=== PATIENT | female | born 1935 | race Caucasian/White ===

== ENCOUNTER 2018-02-02 14:58 | Inpatient (IN) | payer MEDICARE, OTHER ==
[~2018-02-02] VITALS: Ht 162.6 cm; Wt 114.3 kg
[2018-02-02] MEDS: SIMVASTATIN 40 MG TABLET PO SCH (01:00)
--- NOTE | 2018-02-02 15:10 | NUR ---
RIGHT SIDED BODY/LEG PAIN,S/P GLF IN A PARKING LOT, NO LOC. PT AAOX3, VSS. PT ALSO C/O NECK & BACK PAIN. DR. WALKER @BS FOR EVAL. DAUGHTER @ BS ASSISTING WITH TRANSLATION. WILL CONT TO MONITOR.
[2018-02-02] MEDS ORDERED: ONDANSETRON HCL/PF 4 MG/2 ML VIAL IVP ONE (15:30)
[2018-02-02] MEDS ORDERED: MORPHINE SULFATE INJ 4 MG/ML DISP.SYRIN ONE (15:30)
[2018-02-02] MEDS ORDERED: MORPHINE SULFATE INJ 2 MG/ML DISP.SYRIN IV ONE (15:30)
[2018-02-02] MEDS ORDERED: ONDANSETRON HCL/PF 4 MG/2 ML VIAL ONE (15:30)
--- NOTE | 2018-02-02 15:35 | NUR ---
PT REFUSED IV MEDS & SALINE LOCK INSERTION, AWARE.
[2018-02-02] MEDS ORDERED: KETOROLAC TROMETHAMINE INJ 60 MG/2 ML VIAL IM ONE ×2 (15:45→16:00)
--- NOTE | 2018-02-02 15:53 | NUR ---
PT DOESNN'T WANT PAIN MED @ THIS MOMENT.
--- NOTE | 2018-02-02 17:27 | NUR ---
MEDICATED WITH 60 MG OF TORADOL IM, RUOQ BUTTOCK AREA, PT JETT WELL. PT TO RADIOLOGY DEPT VIA PHUONG.
--- NOTE | 2018-02-02 18:38 | NUR ---
PT RESTING, EYES CLOSED EASILY AWAKEN WITH VERBAL STIMULI. PT STS PAIN 10/26 & BETTER. DENIES CP, SOB, DIZZINESS, N/V @ THIS TIME. PT STABLE NAD NOTED THIS TIME. DAUGHTER @ BS.
--- NOTE | 2018-02-02 19:53 | NUR ---
PT & DAUGHTER REFUSED, BLOOD DRAW & SALINE LOCK INSERTION, AWARE.
--- NOTE | 2018-02-02 20:04 | NUR ---
M/S 202
--- NOTE | 2018-02-02 20:45 | NUR ---
FAMILY DOESN'T WANT PT TO BE ADMITTED TO THE HOSPITAL. PT TO MRI VIA [facility].
[2018-02-02] MEDS ORDERED: HEPARIN SODIUM, PORCINE 5000 UNITS/1 ML VIAL SQ SCH (21:00)
[2018-02-02] MEDS ORDERED: BLOOD SUGAR DIAGNOSTIC 1 EACH STRIP IN SCH (22:00)
--- NOTE | 2018-02-02 22:38 | NUR ---
FAMILY CHANGED THEIR MIND & WANTS PT TO ADMITTED.
--- NOTE | 2018-02-02 23:06 | NUR ---
PT UPGRADED BED FROM MS TO TELE. AWAITING BED ASSIGNMENT.
--- NOTE | 2018-02-02 23:11 | NUR ---
PT ASLEEP, EASILY AWAKEN WITH VERBAL STIMULI. DENIES CP, SOB, DIZZINESS, N/V @ THIS TIME. PT C/O RT ARM, HAND & KNEE PAIN 08/26 & JETT WELL. WILL CONT TO MONITOR.
--- NOTE | 2018-02-02 23:30 | NUR ---
EPIC AMBULATORY ANALYST ADMISSION NOTES PATIENT BROUGHT INTO THE UNIT VIA GURNEY, NO IV ACCESS AND PER REPORT FROM ER, PATIENT AND FAMILY HAS BEEN REFUSING IV ACCESS, BLOOD DRAW A ND MRI OF THE BRAIN. EXPLAINED RISKS AND BENEFITS TO PT BUT CONTINUES TO REFUSE. PT IN NO ACUTE DISTRESS, NO SOB, BREATHING EVEN AND UNLABORED, DENIES CHEST PAIN AND IS VERBALIZING ONLY 4/10 GENERALIZED PAIN BUT MORE ON HER RIGHT LEG. ORIENTED PT TO UNIT, ADMISSION PROCESS AND PLAN OF CARE. NURSING SWALLOW EVALUATION DONE, NIHSS PERFORMED WITH SCORE OF 6. GENERAL SCIENCE TEACHER FREDDY INFORMED AND PER GENERAL SCIENCE TEACHER TO KEEP PATIENT NPO. ALL PATIENT'S NEEDS ATTENDED TO, PLACED CALL LIGHT WITHIN EASY REACH, PLACED BED IN LOW POSITION AND LOCKED IN PLACE. ON TELE MONITORING WITH SR 70s.
[2018-02-03] VITALS: BP 144/73
[2018-02-03] MEDS ORDERED: BLOOD SUGAR DIAGNOSTIC 1 EACH STRIP IN SCH
[2018-02-03] MEDS ORDERED: HEPARIN SODIUM, PORCINE 5000 UNITS/1 ML VIAL ONE (01:10)
--- NOTE | 2018-02-03 01:15 | NUR ---
RN NOTES INFORMED SABRINA BELLO THAT PT HAS NOT RECEIVED HEPARIN 5,000 UNITS SQ YET. PER PLUGGER MAN, GIVE FIRST DOSE OF HEPARIN.
[2018-02-03] MEDS ORDERED: DOCU250C89 PO (02:07)
[2018-02-03] MEDS ORDERED: LINA145C PO (02:07)
[2018-02-03] MEDS ORDERED: LORA10TA7 PO (02:07)
[2018-02-03] MEDS ORDERED: METO50TA16 PO (02:07)
[2018-02-03] MEDS ORDERED: DILT-32 PO (02:07)
[2018-02-03] MEDS ORDERED: OLME1TAB34 PO (02:07)
[2018-02-03] MEDS ORDERED: HEPARIN SODIUM, PORCINE 5000 UNITS/1 ML VIAL SQ ONE (02:15)
--- NOTE | 2018-02-03 02:15 | NUR ---
RN NOTES CALRIFIED HEPARIN AND ACCUCHECK/SLIDING SCALE ORDERS WITH SNAKER DRIVING HORSES, PER SABRINA BELLO, HEPARIN WILL BE GIVEN Q12 HOURS TO BE STARTED TOMORROW AND ACCUCHECK WILL BE DONE ACHS. ALL ORDERS NOTED AND CARRIED OUT. CLARIFIED WITH PHARMACY.
[2018-02-03] MEDS ORDERED: INSULIN REGULAR, HUMAN 100 UNIT/ML 3 ML VIAL SQ PRN (02:30)
[2018-02-03] MEDS ORDERED: DEXTROSE 50%-WATER 50 ML DISP.SYRIN IV PRN (02:30)
[2018-02-03 04:00] VITALS: BP 134/58
--- NOTE | 2018-02-03 06:29 | NUR ---
RN CLOSING NOTES RESIDENT ASLEEP IN BED, EASIILY AROUSABLE. ALL PATIENT'S NEEDS ATTENDED TO THROUGHOUT THE SHIFT. PATIENT'S DAUGHTER AT BEDSIDE. PT WITH NO SOB, IN NO DISTRESS. SPOKE WITH DAUGHTER, MEMO, REGARDING PT'S IV PERIPHERAL ACCESS BUT DAUGHTER CONTINUES TO REFUSE IV INSERTION. ASSEMBLER MECHANICAL ORDNANCE TRIED TO OBTAIN BLOOD SPECIMEN FOR AM LABS BUT DAUGHTER ASKED ASSEMBLER MECHANICAL ORDNANCE TO COME BACK AT 8AM. ALL PATIENT'S NEEDS ATTENDED TO. PATIENT WITH NO C/O PAIN AT THIS TIME. KEPT PT SAFE AND DRY, CLEAN AND COMFORTABLE. ON TELE MONITORING SR 60-70S. WILL ENDORSE TO AM SHIFT NURSE FOR CONTINUITY OF CARE.
[2018-02-03] MEDS: BLOOD SUGAR DIAGNOSTIC 1 EACH STRIP IN SCH ×4 (07:01→21:54)
[2018-02-03 08:00] VITALS: BP 132/54
[2018-02-03] MEDS ORDERED: Medication Not On Formulary EA (Olmesartan Med/Amlodipine/Hctz (Tribenzor 40-10-25 Mg Ta PO SCH (09:00)
[2018-02-03] MEDS ORDERED: DOCUSATE SODIUM 100 MG CAPSULE PO SCH (09:00)
[2018-02-03] MEDS: DOCUSATE SODIUM 250 MG CAPSULE PO SCH ×3 (09:00→18:32)
[2018-02-03] MEDS ORDERED: Linaclotide (Linzess) 145 MCG PO SCH (09:00)
[2018-02-03] MEDS ORDERED: PANTOPRAZOLE 40 MG VIAL IV SCH (09:00)
--- NOTE | 2018-02-03 10:22 | NUR ---
WOUND CARE CONSULT: PT PRESENTS WITH BREASTFOLD REDNESS, PRESENT ON ADMISSION. CURRENT SPRING SCORE IS 11. PT WAS UP OUT OF BED WITH P.T. RECOMMENDATIONS MADE FOR SKIN PROTECTION AND DISCUSSED WITH NURSING STAFF. PEGGY ISOFLEX LOW AIRLOSS BED TO BE PLACED. WILL SEE PRN. BANKS IN AGREEMENT WITH PLAN OF CARE. Addendum: 02/03/18 at 1023 by WOO QUINTEROS WNDNU Amended: Links added.
[2018-02-03] MEDS ORDERED: Z GUARD REMEDY 2 OZ OINT TP PRN (10:30)
[2018-02-03] MEDS: PANTOPRAZOLE 40 MG TABLET.DR PO SCH ×2 (11:30→12:29)
[2018-02-03 12:00] VITALS: BP 126/55
[2018-02-03] MEDS: METOPROLOL TARTRATE 50 MG TABLET PO SCH ×2 (12:10→18:32)
[2018-02-03] MEDS: Z GUARD REMEDY 2 OZ OINT TP SCH (12:28)
[2018-02-03] MEDS: ASPIRIN EC 325 MG TABLET.DR PO SCH ×2 (12:29→12:45)
--- NOTE | 2018-02-03 12:30 | NUR ---
INSULIN HELD WITH LUNCH INTAKE ONLY 50%.
[2018-02-03 12:49] LABS: BASOPHILS % (AUTO) 0.8 % (0.0-2.0); EOSINOPHILS % (AUTO) 0.7 % (0.0-6.0); HEMATOCRIT 35 % (33-45); HEMOGLOBIN 11.3 g/dL (11.5-14.8); LYMPHOCYTES # (AUTO) 0.9 /CMM (0.8-4.8); LYMPHOCYTES % (AUTO) 18.6 % (20.0-44.0); MEAN CORPUSCULAR HGB CONC 33 g/dl (31.0-36.0); MEAN CORPUSCULAR VOLUME 85 fL (82-100); MONOCYTES # (AUTO) 0.5 /CMM (0.1-1.30); MONOCYTES % (AUTO) 9.4 % (2.0-12.0); NEUTROPHILS # (AUTO) 3.7 /CMM (1.8-8.9); NEUTROPHILS % (AUTO) 70.5 % (43.0-81.0); PLATELET COUNT (AUTO) 163 /CMM (150-450); RDW COEFFICIENT OF VARIATION 13.6 (11.5-15.0); RED BLOOD CELL COUNT(AUTO) 4.03 MIL/uL (4.0-5.2); WHITE BLOOD COUNT (AUTO) 5.1 K/uL (4.3-11.0)
[2018-02-03 12:54] LABS: ALANINE AMINOTRANSFERASE 22 U/L (12-78); ALBUMIN 3.2 g/dL (3.4-5.0); ALKALINE PHOSPHATASE 77 U/L (46-116); ASPARTATE AMINOTRANSFERASE 20 U/L (15-37); BILIRUBIN,TOTAL 0.6 mg/dL (0.2-1.0); CALCIUM, SERUM 8.6 mg/dL (8.5-10.1); CARBON DIOXIDE 34 mmol/L (21-32); CHLORIDE 102 mmol/L (98-107); CREATININE 0.8 mg/dL (0.6-1.3); GLUCOSE 172 mg/dL (74-106); POTASSIUM 4.6 mmol/L (3.5-5.1); SODIUM SERUM 142 mmol/L (136-145); TOTAL PROTEIN, SERUM 6.7 g/dL (6.4-8.2); UREA NITROGEN, BLOOD 25 mg/dL (7-18)
[2018-02-03 12:56] LABS: CHOLESTEROL 182 mg/dL (<200); HDL CHOLESTEROL 58 mg/dL (40-60); LDL 115 mg/dL (0-99); TRIGLYCERIDES 121 mg/dL (30-150)
--- NOTE | 2018-02-03 14:00 | NUR ---
PT.REFUSING TO BE REPOSITIONED NEEDED, OFTEN NEEDED. DTR. DIRECTING CARE.
[2018-02-03] MEDS: TRAMADOL HCL 50 MG TABLET PO PRN ×2 (14:18→22:44)
--- NOTE | 2018-02-03 15:00 | NUR ---
PT. SAT ON EDGE OF BED BY PTX WITH 4 PERSON ASSIST.
--- NOTE | 2018-02-03 15:25 | NUR ---
AT THIS TIME DTR. REFUSING TRANSFER OF PT. TO ISOFLEX BED.
--- NOTE | 2018-02-03 15:27 | NUR ---
CONT. TO REFUSE HEP LOCK AND REPOSITIONING.
[2018-02-03 15:39] LABS: ALBUMIN 3.2 g/dL (3.4-5.0); BILIRUBIN,DIRECT 0.1 mg/dL (0.0-0.2); BILIRUBIN,TOTAL 0.6 mg/dL (0.2-1.0); PHOSPHORUS 4.6 mg/dL (2.5-4.9); TOTAL PROTEIN, SERUM 6.8 g/dL (6.4-8.2)
[2018-02-03 15:59] LABS: INR 0.96 (0.87-1.13)
[2018-02-03 16:00] VITALS: BP 141/61
[2018-02-03 16:34] LABS: THYROID STIMULATING HORMONE 1.142 uIU/mL (0.358-3.74)
--- NOTE | 2018-02-03 18:30 | NUR ---
INSULIN REFUSED WITH DINNER.BGL ONLY 137.
--- NOTE | 2018-02-03 19:20 | NUR ---
RN OPENING NOTES RECEIVED PATIENT ASLEEP IN BED, EASILY AROUSABLE AND WITH DAUGHTER AT BEDSIDE. DAUGHTER AND PATIENT REQUESTING NOT TO MOVE PATIENT SO MUCH. EXPLAINED RISKS AND BENEFITS OF TURNING AND REPOSITIONING, PT AND DAUGHTER VERBALIZED UNDERSTANDING BUT PREFERS NOT TO BE MOVED SO MUCH. PT DENIES PAIN AT THIS TIME, NO SOB AND IN NO DISTRESS. ALL PATIENT'S NEEDS ATTENDED TO AT THIS TIME, CALL LIGHT PLACED WITHIN EASY REACH. WILL CONTINUE TO BE ON TELE MONITORING SR @90s.
[2018-02-03 20:00] VITALS: BP 131/61
--- NOTE | 2018-02-03 21:54 | NUR ---
RN NOTES ACCU-CHECK DONE AND PT WITH BLOOD SUGAR = 141 MG/DL. PT REFUSED TO RECEIVE INSULIN PER SLIDING SCALE. EXPLAINED RISKS AND BENEFITS TO PT. WILL CONTINUE TO MONITOR.
[2018-02-03] MEDS: DILTIAZEM HCL CD 120 MG PO SCH (22:44)
[2018-02-03] MEDS: SIMVASTATIN 40 MG TABLET PO SCH ×2 (22:44→22:54)
[2018-02-03 22:50] LABS: APPEARANCE,URINE SL CLOUDY (CLEAR); BILIRUBIN,URINE NEGATIVE (NEGATIVE); BLOOD, URINE NEGATIVE Ery/uL (NEGATIVE); COLOR,URINE YELLOW (YELLOW); KETONES,URINE NEGATIVE (NEGATIVE); LEUKOCYTE ESTERASE ,URINE NEGATIVE (NEGATIVE); NITRITE, URINE NEGATIVE (NEGATIVE); PH,URINE 5.5 (5.0-8.0); PROTEIN,URINE NEGATIVE (NEGATIVE); UGLUCOSE NEGATIVE (NEGATIVE); UROBILINOGEN,URINE 0.2 EU/dL (0.2)
--- NOTE | 2018-02-03 22:54 | NUR ---
RN NOTE PATIENT REFUSED SIMVASTATIN, PER PT "IT IS A NEW MEDICATION." EXPLAINED RISKS AND BENEFITS OF MEDICATION BUT CONTINUES TO REFUSE, RESPECTED PT'S DECISION. WILL CONTINUE TO MONITOR PT.
[2018-02-04] VITALS (21 sets, daily range): BP systolic 91–138; BP diastolic 44–65
--- NOTE | 2018-02-04 04:35 | NUR ---
RN NOTES NOTED PATIENT WITH C/O GENERAL WEAKNESS, O2 SAT @ 85-86% @ 2LPM, ELEVATED HOB OF PATIENT, O2 SAT @ 91-92% @ 4LPM, APPLIED NON REBREATHER MASK @ 15LPM AND O2 SAT: 95-98%. PAGED DR. BEARD WITH NEW ORDERS. GIVE FIRST DOSE OF XOPENEX 0.63 MG Q6 PRN HHRT, CBC,BMP,TROPONIN, BNP, ABG, MAG, PHOS @ 6AM AND CXR @ 7AM. CLARIFIED WITH MD ALL ORDERS WILL BE SCHEDULED AND NOT ORDERED STAT. MD WITH INSTRUCTION TO DO EVERYTHING SCHEDULED. ALL ORDERS NOTED AND CARRIED OUT. PT AND DAUGHTER AWARE AND AGREES WITH PLAN OF CARE.
--- NOTE | 2018-02-04 04:36 | NUR ---
RN NOTES CLARIFIED WITH MD IF PT WILL BE KEPT ON A NON REBREATHER MASK @ 15LPM. PER DR. BEARD, KEEP PT ON 15LPM VIA NON REBREATHER MASK AND CONTINUE TO MONITOR.
[2018-02-04] MEDS ORDERED: LEVALBUTEROL HCL NEB 1.25 MG/0.5 ML VIAL.NEB NEB PRN ×2 (05:00→06:06)
--- NOTE | 2018-02-04 05:09 | NUR ---
JACKIE NOTES PATIENT RECEIVED BREATHING TX, NOW RECEIVING O2 @5LPM VIA NC, O2 SAT = 97%. Addendum: 02/04/18 at 0518 by HUMZA DRAPER RN PATIENT RECEIVING O2 @ 5LPM VIA FACE MASK.
[2018-02-04 06:11] LABS: ABG BASE EXCESS 3.7 mmol/L; ABG PH 7.304 (7.350-7.450); ABG PO2 79.7 mmHg (75.0-100.0); AaDO2 130.8 mmHg; MetHb 0.4 % (0.0-1.5); O2Hb 93.6 % (94.0-97.0); SITE, ABG Right Radial; VENT MODE, BG 5 LSM
--- NOTE | 2018-02-04 06:14 | NUR ---
RN NOTES RECEIVED ABG VALUES WITH CRITICAL RESULTS C02=65, RELAYED TO DR. BEARD WITH NEW ORDER TO TRANSFER PATIENT TO ICU AND START HER ON BIPAP. INFORMED PATIENT AND DAUGHTER, INITIALLY REFUSING TO BE TRANSFERRED TO ICU. EXPLAINED RISKS AND BENEFITS TO DAUGHTER AND PATIENT AND AGREED TO TRANSFER TO ICU. REPORT GIVEN TO KIT ICU NURSE. PATIENT WILL GO TO BED RM 258.
--- NOTE | 2018-02-04 06:25 | NUR ---
RN NOTES WHILE EXPLAINING TO DAUGHTER THAT PATIENT NEEDS TO BE ON BIPAP, DAUGHTER TELLS CHARGE NURSE THAT PATIENT IS SUPPOSED TO BE USING C-PAP AT HOME BUT PATIENT HAS NOT BEEN USING IT. PATIENT AND DAUGHTER HAS BEEN ASKED MULTIPLE TIMES REGARDING PATIENT'S MEDICAL HISTORY AND PATIENT AND DAUGHTER CONSISTENTLY GIVES HYPERTENSION THE ONLY MEDICAL HISTORY THAT THE PATIENT HAS. WILL ENDORSE TO ICU NURSE UPON TRANSFER.
--- NOTE | 2018-02-04 06:40 | NUR ---
RN NOTES PATIENT TRANSFERRED TO ICU, RM 258.
--- NOTE | 2018-02-04 06:53 | NUR ---
RUBBER MOULDING MACHINE OPERATOR NOTE PT RECEIVED IN BED AND TRANSFERRED SAFELY TO ROOM 258. RECEIVED REPORT FROM HUMZA MEJIA. PT NOTED LETHARGIC AND ANGUILLAN SPEAKING WITH DAUGHTER AT BEDSIDE REFUSING IV ACCESS WITH RISKS AND BENEFITS EXPLAINED AND DAUGHTER STILL REFUSING. ON 5LPM VIA FACE MASK AND SATURATING 97%-100%. PT TOOK OFF TELEMONITOR. HOB ELEVATED. WILL CONTINUE TO MONITOR.
--- NOTE | 2018-02-04 06:53 | NUR ---
RN NOTES NOTIFIED DR BEARD THAT PATIENT AND HER DAUGHTER HAVE BEEN REFUSING IV ACCESS SINCE ADMISSION. PATIENT STILL CURRENTLY HAS NO IV ACCESS
[2018-02-04 07:14] LABS: TROPONIN I < 0.017 ng/mL (0.00-0.056)
[2018-02-04 07:17] LABS: B-TYPE NATRIURETIC PEPTIDE 330 PG/ML (0-125); CALCIUM, SERUM 8.5 mg/dL (8.5-10.1); CARBON DIOXIDE 34 mmol/L (21-32); CHLORIDE 102 mmol/L (98-107); CREATININE 0.8 mg/dL (0.6-1.3); GLUCOSE 125 mg/dL (74-106); PHOSPHORUS 3.7 mg/dL (2.5-4.9); POTASSIUM 4.2 mmol/L (3.5-5.1); SODIUM SERUM 140 mmol/L (136-145); UREA NITROGEN, BLOOD 25 mg/dL (7-18)
[2018-02-04 07:18] LABS: BASOPHILS % (AUTO) 0.7 % (0.0-2.0); EOSINOPHILS % (AUTO) 0.8 % (0.0-6.0); HEMATOCRIT 34 % (33-45); HEMOGLOBIN 11.2 g/dL (11.5-14.8); LYMPHOCYTES # (AUTO) 1.6 /CMM (0.8-4.8); LYMPHOCYTES % (AUTO) 27.1 % (20.0-44.0); MEAN CORPUSCULAR HGB CONC 33 g/dl (31.0-36.0); MEAN CORPUSCULAR VOLUME 86 fL (82-100); MONOCYTES # (AUTO) 0.6 /CMM (0.1-1.30); MONOCYTES % (AUTO) 9.5 % (2.0-12.0); NEUTROPHILS # (AUTO) 3.6 /CMM (1.8-8.9); NEUTROPHILS % (AUTO) 61.9 % (43.0-81.0); PLATELET COUNT (AUTO) 152 /CMM (150-450); RDW COEFFICIENT OF VARIATION 13.6 (11.5-15.0); RED BLOOD CELL COUNT(AUTO) 3.93 MIL/uL (4.0-5.2); WHITE BLOOD COUNT (AUTO) 5.8 K/uL (4.3-11.0)
[2018-02-04] MEDS: PANTOPRAZOLE 40 MG TABLET.DR PO SCH ×2 (07:30→11:53)
--- NOTE | 2018-02-04 08:15 | NUR ---
ICU/RN: Dr Hernandez at bedside, had lengthy dw daughter Linda regarding POC. Agrees to have one PIV inserted. Pt remains on BiPAP, lethargic however able to follow some commands and communicate. Per daughter, pt is supposed to wear CPAP at night at home however is non-compliant. New orders noted and carried out.
[2018-02-04] MEDS: BLOOD SUGAR DIAGNOSTIC 1 EACH STRIP IN SCH (08:19)
[2018-02-04] MEDS: DOCUSATE SODIUM 250 MG CAPSULE PO SCH ×3 (08:20→17:28)
[2018-02-04] MEDS: METOPROLOL TARTRATE 50 MG TABLET PO SCH ×3 (08:20→17:28)
[2018-02-04] MEDS: AMLODIPINE BESYLATE 5 MG TABLET PO SCH ×2 (08:20→11:54)
[2018-02-04] MEDS: ASPIRIN EC 325 MG TABLET.DR PO SCH ×2 (08:20→11:53)
[2018-02-04] MEDS: Z GUARD REMEDY 2 OZ OINT TP SCH (08:21)
[2018-02-04] MEDS: HEPARIN SODIUM, PORCINE 5000 UNITS/1 ML VIAL SQ SCH ×2 (08:35→21:06)
[2018-02-04] MEDS ORDERED: LOSARTAN/HCTZ 50-12.5MG/ 1 EA TABLET PO SCH (09:00)
--- NOTE | 2018-02-04 10:00 | NUR ---
ICU/RN: Refuses turning and repositioning despite education.
--- NOTE | 2018-02-04 10:30 | NUR ---
ICU/RN: Dr Cardenas at bedside; per defer PT/OT for now. Pending neuro sx eval, possibly this PM per Dr Hernandez
--- NOTE | 2018-02-04 11:15 | NUR ---
ICU/RN: GEOFF tech, PT at bedside for XR and neck brace application. Daughter refuses for now, states "She just fell asleep, don't touch her now. I'll call you when she's ready."
--- NOTE | 2018-02-04 11:38 | NUR ---
RT PER DR FLAHERTY PATIENT REMOVED FROM BIPAP AND PLACED ON 3L N/C. PATIENT AWAKE ALERT, NO SOB AT THIS TIME
[2018-02-04] MEDS: LORATADINE 10 MG TABLET PO PRN (11:53)
--- NOTE | 2018-02-04 12:00 | NUR ---
ICU/RN: Dr Plasencia rounds; updated on pt status. Informed of new onset a-fib/a-flutter and ST 160's. Aware that am meds held dt pt on BiPAP. PO meds administered and tolerated well. EKG ongoing. New orders noted and carried out.
[2018-02-04] MEDS ORDERED: AMIODARONE 150 MG in IV D5W 100 ML IV ONE (12:30)
[2018-02-04] MEDS ORDERED: AMIODARONE 900 MG in IV D5W 482 ML IV PRN (12:30)
--- NOTE | 2018-02-04 12:30 | NUR ---
ICU/RN: Spoke with Dr Hernandez, neurosurgery consult - clarified order for neck brace. Per MD "there is no need for a neck brace. I will see the patient tomorrow."
--- NOTE | 2018-02-04 13:00 | NUR ---
ICU/RN: Pt BP dropped to low 90's s/p PO med administration; pt currently SR in 90's. Per Dr Plasencia "ok to hold until BP is in the 100's."
--- NOTE | 2018-02-04 14:45 | NUR ---
ICU/RN: SABRINA Harding at bedside for Dr Hernandez, neurosurgery. Labs, imaging results reviewed, POC discussed at length with family. Pt requiring surgical intervention and refuses transfer to [facility], want to transfer pt to [facility]. Daughter wishes to discuss POC with other family members prior to making any transfers. salesforce trainer updated.
--- NOTE | 2018-02-04 17:29 | NUR ---
ICU/RN: Pt continues to refuse turning and repositioning, hygienic care. Daughter states "My mom is comfortable. Her diaper is dry." Educated on skin protection, pt and daughter still refuses.
--- NOTE | 2018-02-04 19:15 | NUR ---
ICU/RN: Pt on bedpan, attempting to have BM. Daughter at bedside and states that she will bring in home med soon. Bedside report given to PM RN for GENE.
--- NOTE | 2018-02-04 20:18 | NUR ---
GLASS BULB SILVERER OPENING NOTES RECEIVED REPORT FROM RICARDO MEJIA. PATIENT A/A/O X3, MOSTLY BANGLADESHI-SPEAKING BUT ABLE TO MAKE SOME NEEDS KNOWN. BREATHING EVEN & UNLABORED, TOLERATING O2 @ 4LPM VIA NC. DENIES SOB OR DIFFICULTY BREATHING. NOC BIPAP TO BE APPLIED LATER TONIGHT. 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 RIGHT WRIST IV #20 INTACT & PATENT W/ DRESSING CDI, SALINE LOCKED. DENIES ANY PAIN OR DISCOMFORT @ THIS TIME. SAFETY MEASURES IN PLACE W/ CALL LIGHT WITHIN REACH & BED ALARM ON. DAUGHTER @ BEDSIDE. WILL CONTINUE TO MONITOR CLOSELY.
[2018-02-04] MEDS: DILTIAZEM HCL CD 120 MG PO SCH (21:05)
[2018-02-04] MEDS: SIMVASTATIN 40 MG TABLET PO SCH (21:06)
--- NOTE | 2018-02-04 22:11 | NUR ---
PT PLACED ON NOC BIPAP WITH UNDER THE NOSE MASK. PT IS AWAKE AND ALERT. RN NOTIFIED. WILL CONTINUE TO MONITOR. Addendum: 02/04/18 at 2215 by REUBEN TERRELL RT Amended: Links added.
[2018-02-05] VITALS (20 sets, daily range): BP systolic 108–142; BP diastolic 46–80
--- NOTE | 2018-02-05 05:09 | NUR ---
PT TAKEN OFF BIPAP AND PLACED ON 3L NC. RN NOTIFIED. Addendum: 02/05/18 at 0509 by REUBEN TERRELL RT Amended: Links added.
--- NOTE | 2018-02-05 07:50 | NUR ---
VOCATIONAL TRAINING TEACHER NOTES RECEIVED PATIENT IN BED ,RESTING COMFORTABLY AT THIS TIME. BREATHING EVEN & UNLABORED, TOLERATING O2 @ 3LPM VIA NC RT WRIST HL INTACT , NO SOB NOTE AT THIS TIME , BED IN LOWEST AND LOCKED POSITION, REFUSED TO HAVE BREAKFAST STATED THAT HER DAUGHTER WILL COME SOON AND HELP TO FEED HER ,WILL F\U
[2018-02-05] MEDS: DOCUSATE SODIUM 250 MG CAPSULE PO SCH ×2 (08:11→16:02)
[2018-02-05] MEDS: METOPROLOL TARTRATE 50 MG TABLET PO SCH ×2 (08:11→16:03)
[2018-02-05] MEDS: HEPARIN SODIUM, PORCINE 5000 UNITS/1 ML VIAL SQ SCH ×2 (08:12→21:38)
[2018-02-05] MEDS: PANTOPRAZOLE 40 MG TABLET.DR PO SCH (08:12)
[2018-02-05] MEDS: ASPIRIN EC 325 MG TABLET.DR PO SCH (08:16)
[2018-02-05] MEDS: Z GUARD REMEDY 2 OZ OINT TP SCH (08:21)
--- NOTE | 2018-02-05 08:30 | NUR ---
APPAREL SALES ASSOCIATE NOTE DR PARRISH AT BEDSIDE ,ALL NEEDS ATTENDED, WILL DO ABG ORDERED, WILL F\U
[2018-02-05 09:08] LABS: ABG BASE EXCESS 4.8 mmol/L; ABG OXYGEN SATURATION 91.6 % (92.0-98.5); ABG PCO2 57.3 mmHg (35.0-45.0); ABG PH 7.358 (7.350-7.450); ABG PO2 65.2 mmHg (75.0-100.0); AaDO2 95.9 mmHg; COHb 0.3 % (0.5-1.5); MetHb 0.6 % (0.0-1.5); O2Hb 90.8 % (94.0-97.0); SITE, ABG Right Radial; VENT MODE, BG NASAL CANNULA
--- NOTE | 2018-02-05 09:18 | NUR ---
ELECTRIC PILE DRIVER OPERATOR NOTE ABG DONE DR VALDEZ AT BEDSIDE ,SPEAKING WITH DAUGHTER ALSO ABG RESULT REPORTED TO DR PARRISH WITH ORDER CONT 3L NC OF O2 AT THIS TIME, WILL F\U
[2018-02-05] MEDS: IPRATROPIUM NEB FS 0.5 MG/2.5 ML AMPUL.NEB NEB SCH ×3 (09:30→19:40)
--- NOTE | 2018-02-05 10:54 | NUR ---
MISSION PLANNER NOTE KEEP CLEAN DRY ,CONT ON O2 3L SAT 93% ALL NEEDS ATTENDED,CALL LIGHT WITHIN REACH
--- NOTE | 2018-02-05 11:00 | NUR ---
HOSE COUPLING JOINER NOTE PER BENNY INTEGRATED LOGISTICS PROGRAMS DIRECTOR PATIENT WILL BE TRANSFER TO [facility], WILL F\U
--- NOTE | 2018-02-05 11:04 | NUR ---
BREATHING TX ORDERED WILL START. AT 1330 ZERO DISTRESS NOTED.
--- NOTE | 2018-02-05 11:42 | NUR ---
DIRECTOR MBA NOTE PER AND BENNY ORCHID TRANSPLANTER ,PATIENT WILL NOT TRANSFER TO [facility] AT THIS TIME , WILL F\U
--- NOTE | 2018-02-05 12:00 | NUR ---
VP PRODUCT NOTE REFUSED TO DO REPOSITION, OFFERED X2 STILL REFUSED STATED I AM OK FOR NOW DONT MOVE ME , WILL CONT TO ENCOURAGE TO REPOSITION
--- NOTE | 2018-02-05 12:30 | NUR ---
DOT COMPLIANCE COORDINATOR NOTE FED PATENT. ALL NEEDS ATTENDED, NOT IN ACUTE DISTRESS
--- NOTE | 2018-02-05 14:33 | NUR ---
[place] RN NOTE RECEIVED PATIENT FROM ICU ALERT ,ORIENTED ,NO SOB NOTED ON 3L NC RT WRIST HL INTACT NO S\S INFECTION NOTED, BED IN LOWEST AND LOCKED POSITION , CALL LIGHT WITHIN REACH , ON TELE MONITOR SR HR 88 WITH BBB, DAUGHTER AT BEDSIDE. WILL CONT TO MONITOR CLOSELY
--- NOTE | 2018-02-05 16:17 | NUR ---
MATTI was informed by lining caser Alayna that pt's daughter is requesting an verification of admission letter for her school. MATTI typed verification of admission letter and gave it to lining caser Alayna per her request.
--- NOTE | 2018-02-05 18:29 | NUR ---
[place]LE RN NOTE KEEP CLEAN DRY , ALL NEEDS ATTENDED, FED BY STUFF ,ATE 25% OF DIET , NOT IN ACUTE DISTRESS , WILL CONT TO MONITOR CLOSELY
[2018-02-05] MEDS: LORATADINE 10 MG TABLET PO PRN (19:33)
--- NOTE | 2018-02-05 20:00 | NUR ---
carolina rn notes received pts in bed a/ox3 family at bedside , updated with pts condition, on tele monitor on sr ist avb with bbb ,v/s stable afebrile on nc [id number] sating 93%hob elevated at all times , all due meds given as ordered except zocor not given at 10pm secondary to pts refusal,all neeeds attended to call light within reach ,turned and repositioned.will continue to monitor pts.
--- NOTE | 2018-02-05 21:00 | NUR ---
carolina rn notes spoke to to dr campos with order to d/c claritin change to lavonne 90mg po daily, family will supply the medication.also per dr campos pts to be transfer to acute rehab -[facility], will endorse to rn day shift to follow up.will continue to monitor pts.
[2018-02-05] MEDS: DILTIAZEM HCL CD 120 MG PO SCH (21:45)
[2018-02-05] MEDS: SIMVASTATIN 40 MG TABLET PO SCH (21:45)
--- NOTE | 2018-02-05 22:00 | NUR ---
carolina rn notes pts was put on bipap tolerated well .
[2018-02-06] VITALS: BP 120/65
[2018-02-06] MEDS: IPRATROPIUM NEB FS 0.5 MG/2.5 ML AMPUL.NEB NEB SCH ×4 (01:45→19:43)
--- NOTE | 2018-02-06 02:00 | NUR ---
carolina rn notes pts was put back to nc at 3 liters sating 94%
[2018-02-06] MEDS: TRAMADOL HCL 50 MG TABLET PO PRN ×3 (03:04→18:55)
[2018-02-06 04:00] VITALS: BP 122/53
--- NOTE | 2018-02-06 05:00 | NUR ---
[place]LE RN NOTES PTS IS SO AGITATED , DAUGHTER CALLED IN , PTS CALMER IN BED ,WILL ENNDORSE TO RN DAY SHIFT FOR CONTINUITY OF CARE.
[2018-02-06 08:00] VITALS: BP 133/55
[2018-02-06] MEDS: FEXOFENADINE HCL (60 MG) 60 MG TABLET PO SCH ×2 (09:00→10:20)
[2018-02-06] MEDS: Z GUARD REMEDY 2 OZ OINT TP SCH (09:00)
[2018-02-06] MEDS ORDERED: DOCU250C14 PO (09:11)
[2018-02-06] MEDS ORDERED: SIMV40TA5 PO (09:11)
[2018-02-06] MEDS ORDERED: PANT40TA2 PO (09:11)
[2018-02-06] MEDS ORDERED: HEPA50008 SQ (09:11)
[2018-02-06] MEDS ORDERED: TRAM50TA2 PO (09:11)
[2018-02-06] MEDS ORDERED: LEVA1.2524 NEB (09:11)
[2018-02-06] MEDS ORDERED: DILT120C62 PO (09:11)
[2018-02-06] MEDS ORDERED: ACET-2605 PO (09:11)
[2018-02-06] MEDS ORDERED: METO50TA16 PO (09:11)
[2018-02-06] MEDS ORDERED: ASPI-869 PO (09:11)
[2018-02-06] MEDS ORDERED: FEXO-63 PO (09:11)
[2018-02-06] MEDS ORDERED: ALLA266C2 TP ×2 (09:11)
[2018-02-06] MEDS ORDERED: IPRA0.2S9 NEB (09:11)
--- NOTE | 2018-02-06 09:21 | NUR ---
RN NOTE PT SLEEPY, PER DAUGHTER TO LET HER SLEEP SINCE SHE HAD NOT SLEPT WELL DURING NIGHT, REFUSED MORNING VS CHECK, BREATHING REGULAR, NON-LABORED, O2 SATURATION 92%O N NC 3 L/MIN, ON TELE SR 92, POSTPONED MEDICATION ADMINISTRATION WELL. WILL CHECK LATER AGAIN. CALL LIGHT WITHIN REACH, PT'S DAUGHTER AT BEDSIDE.
[2018-02-06] MEDS: ASPIRIN EC 325 MG TABLET.DR PO SCH (10:19)
[2018-02-06] MEDS: PANTOPRAZOLE 40 MG TABLET.DR PO SCH (10:19)
[2018-02-06] MEDS: DOCUSATE SODIUM 250 MG CAPSULE PO SCH ×2 (10:19→18:30)
[2018-02-06] MEDS: METOPROLOL TARTRATE 50 MG TABLET PO SCH ×2 (10:20→18:31)
[2018-02-06] MEDS: HEPARIN SODIUM, PORCINE 5000 UNITS/1 ML VIAL SQ SCH ×2 (10:22→21:07)
[2018-02-06 12:00] VITALS: BP 119/58
[2018-02-06 16:00] VITALS: BP 135/62
--- NOTE | 2018-02-06 19:33 | NUR ---
TD RN NOTES RECEIVED PT ON BED. A/OX 3 WITH SON ON THE BEDSIDE. ON NASAL CANNULA 3LPM SATURATING WELL. NO RESPIRATORY DISTRESS NOTED. ON TELE MONITOR SR WITH BBB 91. IV ACCESS ON R WRIST G20 SALINE LOCK. PATENT AND INTACT. HEAD OF BED ELEVATED SIDE RAILS UP. CALL LIGHT WITHIN REACH.BED ALARM ON. WILL CONTINUE TO MONITOR PT CLOSELY.
[2018-02-06 20:00] VITALS: BP_SYST 101; BP_SYST 111; BP_DIAS 45
[2018-02-06] MEDS: DILTIAZEM HCL CD 120 MG PO SCH (21:05)
[2018-02-06] MEDS: SIMVASTATIN 40 MG TABLET PO SCH (21:06)
--- NOTE | 2018-02-06 21:08 | NUR ---
TD RN NOTES PT TURNED AND REPOSITION AND ZGUARD WAS APPLIED. FAMILY AT BEDSIDE. WILL CONTINUE TO MONITOR PT CLOSELY.
--- NOTE | 2018-02-06 23:08 | NUR ---
TD RN NOTES PT REFUSED SIMVASTATIN AND CARDIZEM. EXPLAINED RISK AND BENEFITS X3. FAMILY AND PT STILL REFUSE. WILL CONTINUE TO MONITOR PT.
[2018-02-07] VITALS: BP 124/52
[2018-02-07] MEDS: IPRATROPIUM NEB FS 0.5 MG/2.5 ML AMPUL.NEB NEB SCH ×4 (01:30→19:30)
--- NOTE | 2018-02-07 03:37 | NUR ---
TD RN NOTES PER PT DAUGHTER NOT TO WAKE HER MOTHER IN THE MIDDLE OF SLEEP. PT SLEEPING. WILL ONLY CHECK O2 SATURATION. EXPLAINED BENEFITS OF V/S CHECKING. WILL CONTINUE TO MONITOR PT CLOSELY.
--- NOTE | 2018-02-07 03:54 | NUR ---
TD RN NOTES PT OFF BIPAP PER PT REQUEST. BACK ON NASAL CANNULA 3LPM, NO RESPIRATORY DISTRESS NOTED. PT SATURATING 94%. WILL CONTINUE TO MONITOR PT.
--- NOTE | 2018-02-07 06:21 | NUR ---
TD RN NOTES PT REFUSED REPOSITION. EXPLAINED RISK AND BENEFITS, PT STATES SHE WANTS TO SLEEP.
--- NOTE | 2018-02-07 07:00 | NUR ---
RN NOTES RECEIVED PT ON BED, A/Ox4, ON 2L O2 N/C , RESPIRATION EVEN AND UNLABORED, ON TELE SR WITH BBB HR IN 80'S , R WRIST IV SITE G 20 CLEAN , DRY AND INTACT, SR UP x3, CALL LIGHT WITHIN EASY REACH, BED LOCKED AND IN LOWEST POSITION, CONTINUE TO MONITOR .
--- NOTE | 2018-02-07 07:02 | NUR ---
TD RN NOTES NO ACUTE CHANGES NOTED DURING THE SHIFT. NO SHORTNESS OF BREATH NOTED. REPOSITIONED Q2H. PROVIDED COMFORT AND SAFETY. DUE MEDS GIVEN. WILL ENDORSE TO THE AM NURSE FOR CONTINUITY OF CARE.
[2018-02-07] MEDS: TRAMADOL HCL 50 MG TABLET PO PRN ×3 (07:13→23:15)
[2018-02-07 08:00] VITALS: BP 125/52
[2018-02-07] MEDS: PANTOPRAZOLE 40 MG TABLET.DR PO SCH (08:11)
[2018-02-07] MEDS: DOCUSATE SODIUM 250 MG CAPSULE PO SCH ×2 (08:12→16:09)
[2018-02-07] MEDS: METOPROLOL TARTRATE 50 MG TABLET PO SCH ×2 (08:12→16:11)
[2018-02-07] MEDS: ASPIRIN EC 325 MG TABLET.DR PO SCH (08:12)
[2018-02-07] MEDS: HEPARIN SODIUM, PORCINE 5000 UNITS/1 ML VIAL SQ SCH ×2 (08:13→21:11)
[2018-02-07] MEDS: Z GUARD REMEDY 2 OZ OINT TP SCH (08:13)
[2018-02-07] MEDS: FEXOFENADINE HCL (60 MG) 60 MG TABLET PO SCH (08:15)
[2018-02-07 12:00] VITALS: BP 118/54
--- NOTE | 2018-02-07 14:10 | NUR ---
RN NOTES ROOM AIR SATURATION IS 84%, ON 3L O2 N/C , O2 SAT IS 93-94% .
[2018-02-07 16:00] VITALS: BP 154/75
--- NOTE | 2018-02-07 16:41 | NUR ---
RN NOTES PT STABLE, SUPPORTIVE FAMILY AT THE BEDSIDE, NO SIGNIFICANT CHANGES NOTED ON THIS SHIFT, REPORT GIVEN TO PONCHO RN FOR CONTINUITY OF CARE .
--- NOTE | 2018-02-07 17:02 | NUR ---
RN NOTES ASSUMED PT CARE, PT NOT IN ANY DISTRESS; FAMILY AT BEDSIDE
--- NOTE | 2018-02-07 18:45 | NUR ---
rn clossing notes no significant change noted; turned and repositioned. will endorse to next shift rn for continuity of care in stable condition.
--- NOTE | 2018-02-07 19:52 | NUR ---
PT REFUSED BREATHING TX AT THIS TIME, PT AWAKE AND ALERT, NO RESP DISTRESS NOTED. SPO2 92% Addendum: 02/07/18 at 1953 by DESIREE PÉREZ RT Amended: Links added.
[2018-02-07 20:00] VITALS: BP 106/67
--- NOTE | 2018-02-07 20:15 | NUR ---
queta ochoa at this time Addendum: 02/08/18 at 0047 by DESIREE CHAPMAGNE Amended: Links added.
--- NOTE | 2018-02-07 20:57 | NUR ---
RN TEL INITIAL NOTES RECEIVED PT ON BED, A/Ox4, ON 2L O2 N/C , RESPIRATION EVEN AND UNLABORED, ON TELE SR WITH BBB HR IN 80'S , R WRIST IV SITE G 20 CLEAN , DRY AND INTACT, SR UP x3, CALL LIGHT WITHIN EASY REACH, BED LOCKED AND IN LOWEST POSITION, W/BIPAP HS, CONTINUE TO MONITOR.
--- NOTE | 2018-02-07 21:00 | NUR ---
CARDIZEM 120 MG HELD BP 106/67 89
[2018-02-07] MEDS: SIMVASTATIN 40 MG TABLET PO SCH (21:04)
[2018-02-07] MEDS: DILTIAZEM HCL CD 120 MG PO SCH (21:12)
--- NOTE | 2018-02-07 23:39 | NUR ---
queta ochoa at this time Addendum: 02/08/18 at 0047 by DESIREE CHAMPAGNE Amended: Links added.
[2018-02-08] VITALS (7 sets, daily range): BP systolic 146–157; BP diastolic 45–86
--- NOTE | 2018-02-08 00:44 | NUR ---
pt placed on bipap per md order bipap @ noc Addendum: 02/08/18 at 0045 by DESIREE CHAMPAGNE Amended: Links added.
[2018-02-08] MEDS: IPRATROPIUM NEB FS 0.5 MG/2.5 ML AMPUL.NEB NEB SCH ×4 (01:30→19:30)
--- NOTE | 2018-02-08 06:54 | NUR ---
RN TEL CLOSING NOTES ENDORSED PT ON BED, A/Ox4, ON 2L O2 N/C , RESPIRATION EVEN AND UNLABORED, ON TELE SR WITH BBB HR IN 80'S , R WRIST IV SITE G 20 CLEAN , DRY AND INTACT, SR UP x3, CALL LIGHT WITHIN EASY REACH, BED LOCKED AND IN LOWEST POSITION, W/BIPAP HS, CONTINUE TO MONITOR.
--- NOTE | 2018-02-08 07:30 | NUR ---
INITIAL PT A/Ox4, ON 2L O2 N/C , RESPIRATION EVEN AND UNLABORED, ON TELE SR HR IN980'S , R WRIST IV SITE G 20 CLEAN , DRY AND INTACT, SR UP x3, CALL LIGHT WITHIN EASY REACH, BED LOCKED AND IN LOWEST POSITION, TAKEN OFF BIPAP HS, WILL CONTINUE TO MONITOR.
[2018-02-08 07:37] LABS: BASOPHILS % (AUTO) 0.5 % (0.0-2.0); EOSINOPHILS % (AUTO) 1.5 % (0.0-6.0); HEMATOCRIT 34 % (33-45); HEMOGLOBIN 10.9 g/dL (11.5-14.8); LYMPHOCYTES % (AUTO) 21.3 % (20.0-44.0); MEAN CORPUSCULAR HGB CONC 32 g/dl (31.0-36.0); MEAN CORPUSCULAR VOLUME 87 fL (82-100); MONOCYTES # (AUTO) 0.5 /CMM (0.1-1.30); MONOCYTES % (AUTO) 10.6 % (2.0-12.0); NEUTROPHILS # (AUTO) 3.2 /CMM (1.8-8.9); NEUTROPHILS % (AUTO) 66.1 % (43.0-81.0); PLATELET COUNT (AUTO) 138 /CMM (150-450); RDW COEFFICIENT OF VARIATION 14.8 (11.5-15.0); RED BLOOD CELL COUNT(AUTO) 3.87 MIL/uL (4.0-5.2); WHITE BLOOD COUNT (AUTO) 4.8 K/uL (4.3-11.0)
[2018-02-08 08:00] LABS: ALANINE AMINOTRANSFERASE 37 U/L (12-78); ALBUMIN 2.9 g/dL (3.4-5.0); ALKALINE PHOSPHATASE 72 U/L (46-116); ASPARTATE AMINOTRANSFERASE 38 U/L (15-37); BILIRUBIN,TOTAL 0.5 mg/dL (0.2-1.0); CALCIUM, SERUM 8.9 mg/dL (8.5-10.1); CARBON DIOXIDE 32 mmol/L (21-32); CHLORIDE 101 mmol/L (98-107); CREATININE 0.8 mg/dL (0.6-1.3); GLUCOSE 132 mg/dL (74-106); MAGNESIUM 1.9 mg/dL (1.8-2.4); POTASSIUM 4.4 mmol/L (3.5-5.1); SODIUM SERUM 138 mmol/L (136-145); TOTAL PROTEIN, SERUM 6.8 g/dL (6.4-8.2); UREA NITROGEN, BLOOD 23 mg/dL (7-18)
[2018-02-08] MEDS: ASPIRIN EC 325 MG TABLET.DR PO SCH (08:45)
[2018-02-08] MEDS: METOPROLOL TARTRATE 50 MG TABLET PO SCH ×2 (08:45→17:09)
[2018-02-08] MEDS: Z GUARD REMEDY 2 OZ OINT TP SCH (08:45)
[2018-02-08] MEDS: FEXOFENADINE HCL (60 MG) 60 MG TABLET PO SCH (08:45)
[2018-02-08] MEDS: PANTOPRAZOLE 40 MG TABLET.DR PO SCH (08:49)
[2018-02-08] MEDS: DOCUSATE SODIUM 250 MG CAPSULE PO SCH ×2 (12:26→17:09)
[2018-02-08] MEDS: HEPARIN SODIUM, PORCINE 5000 UNITS/1 ML VIAL SQ SCH ×2 (12:28→21:25)
[2018-02-08] MEDS ORDERED: BISACODYL SUPP (10 MG) 10 MG/SUPP.RECT SUPP.RECT RC PRN (13:00)
[2018-02-08] MEDS: SOD FERRIC GLUC 125 MG in IV NS 0.9% 100 ML IV SCH (13:16)
[2018-02-08] MEDS: POLYETHYLENE GLYCOL 3350 17 GM POWD.PACK PO SCH (13:36)
[2018-02-08] MEDS ORDERED: NA PHOS,M-B/NA PHOS,DI-BA 1 EA ENEMA RC ONE ×2 (17:30→21:00)
--- NOTE | 2018-02-08 20:00 | NUR ---
TELE 1 RN NOTE PT IN BED AWAKE. A/O X 3 LUX[place]BOURGISH SPEAKING. UNDERSTAND SIMPLE SWEDISH. NO DISTRESS OR DISCOMFORT NOTED. DENIES PAIN. ON TELE SR WITH 1ST DEGREE AV BLOCK HR 86. FAMILY AT BED SIDE. SIDE RAILS UP X 2 AND CALL LIGHT WITHIN REACH. CONTINUE TO MONITOR HER.
[2018-02-08] MEDS: TRAMADOL HCL 50 MG TABLET PO PRN (21:25)
[2018-02-08] MEDS: SIMVASTATIN 40 MG TABLET PO SCH (21:25)
[2018-02-08] MEDS: DILTIAZEM HCL CD 120 MG PO SCH (21:26)
[2018-02-08] MEDS ORDERED: POLYETHYLENE GLYCOL 3350 17 GM POWD.PACK PO SCH (22:00)
--- NOTE | 2018-02-08 23:25 | NUR ---
TELE 1 RN NOTE PT DID MODERATE AMOUNT OF BM. BED BATH GIVEN. Z GUARD APPLIED.
[2018-02-09] VITALS: BP 130/66
[2018-02-09] MEDS: IPRATROPIUM NEB FS 0.5 MG/2.5 ML AMPUL.NEB NEB SCH ×4 (01:30→19:44)
--- NOTE | 2018-02-09 03:51 | NUR ---
TELE 1 RN NOTE PT KEPT ON REMOVING BIPAP MASK ON AND OFF. STATES "MOUTH DRY". WATER GIVEN TO DRINK. AT THIS TIME PT DON'T WANT BIPAP ON. REPLACED IT WITH N/C 3L. ALSO PT WANTS HER DTR TO COME OVER. INFORMED MEMO HER DTR PT'S WISHES. PER MEMO SHE IS COMING OVER. CONTINUE TO MONITOR HER.
[2018-02-09 04:00] VITALS: BP 121/68
--- NOTE | 2018-02-09 06:27 | NUR ---
TELE 1 RN NOTE PT IN BED ASLEEP, NO DISTRESS OR DISCOMFORT NOTED. NO S/S OF PAIN NOTED. ON TELE MONITOR SR WITH 1ST DEGREE AV BLOCK HR 90. KEPT HER DRY AND CLEAN. ALL NEEDS ATTENDED. REPOSITION HER Q2H, SIDE RAILS UP X 3 AND CALL LIGHT WITHIN REACH. WILL ENDORSE TO DAY SHIFT NURSE FOR CONTINUE TO CARE.
[2018-02-09] MEDS: TRAMADOL HCL 50 MG TABLET PO PRN ×2 (06:53→21:36)
[2018-02-09 08:00] VITALS: BP 138/66
[2018-02-09] MEDS: PANTOPRAZOLE 40 MG TABLET.DR PO SCH (08:36)
[2018-02-09] MEDS: DOCUSATE SODIUM 250 MG CAPSULE PO SCH ×2 (08:36→17:35)
[2018-02-09] MEDS: ASPIRIN EC 325 MG TABLET.DR PO SCH (08:36)
[2018-02-09] MEDS: METOPROLOL TARTRATE 50 MG TABLET PO SCH ×2 (08:36→17:35)
[2018-02-09] MEDS: FEXOFENADINE HCL (60 MG) 60 MG TABLET PO SCH (08:37)
[2018-02-09] MEDS: HEPARIN SODIUM, PORCINE 5000 UNITS/1 ML VIAL SQ SCH ×2 (08:40→21:45)
[2018-02-09] MEDS: Z GUARD REMEDY 2 OZ OINT TP SCH (08:44)
[2018-02-09 12:00] VITALS: BP 113/50
[2018-02-09] MEDS: SOD FERRIC GLUC 125 MG in IV NS 0.9% 100 ML IV SCH (14:39)
[2018-02-09 16:00] VITALS: BP 119/56
[2018-02-09 20:00] VITALS: BP 129/59
--- NOTE | 2018-02-09 20:00 | NUR ---
RN OPENING NOTES RECEIVED BEDSIDE REPORT FROM AM NURSE. PT IN BED AWAKE. A/O X 3 TAJIK SPEAKING. UNDERSTAND SIMPLE [place]. NO DISTRESS OR DISCOMFORT NOTED AT THIS TIME . COMPLAINS OF GENERALIZED BODY PAIN. ON TELE SR WITH BBB HR 85. RIGHT FOREARM IV LINE IS INTACT, PATIENT SL. FAMILY AT BED SIDE. SIDE RAILS UP X 2 AND CALL LIGHT WITHIN REACH.PATIENT IS TURNED AND REPOSITIONED, BED BATH IS GIVEN. WILL CONTINUE TO MONITOR .
--- NOTE | 2018-02-09 20:10 | NUR ---
RN NOTES PATIENT'S PLT. COUNT IS 138, PT/ INR/PTT ARE WITHIN NORMAL RANGE. CALLED PHARMACY TO VERIFY HEPARIN ADMINISTRATION WITH CURRENT PLT COUNT. TALKED TO TRE AND SHE SAID OK TO ADMINISTER HEPARIN.
[2018-02-09] MEDS: DILTIAZEM HCL CD 120 MG PO SCH (21:40)
[2018-02-09] MEDS: SIMVASTATIN 40 MG TABLET PO SCH (21:42)
[2018-02-09] MEDS: POLYETHYLENE GLYCOL 3350 17 GM POWD.PACK PO SCH (21:45)
--- NOTE | 2018-02-09 22:40 | NUR ---
RN NOTE PATIENT'S ABDOMEN IS DISTENDED AND PT COMPLAINS OF GASES. PATIENT AND FAMILY REQUESTED MEDICATION FOR GASES. TALKED TO MD CHIRAG STOVALL AND NEW ORDER MYLICON 80MG PO Q6HR PRN IN PLACE.
[2018-02-09] MEDS: SIMETHICONE 80 MG TAB.CHEW PO PRN (23:11)
[2018-02-10] VITALS: BP 147/64
[2018-02-10] MEDS: IPRATROPIUM NEB FS 0.5 MG/2.5 ML AMPUL.NEB NEB SCH ×4 (01:12→19:57)
[2018-02-10 04:00] VITALS: BP 107/53
[2018-02-10 08:00] VITALS: BP 123/50
[2018-02-10] MEDS: ASPIRIN EC 325 MG TABLET.DR PO SCH (08:19)
[2018-02-10] MEDS: TRAMADOL HCL 50 MG TABLET PO PRN (08:19)
[2018-02-10] MEDS: PANTOPRAZOLE 40 MG TABLET.DR PO SCH (08:19)
[2018-02-10] MEDS: DOCUSATE SODIUM 250 MG CAPSULE PO SCH ×2 (08:19→17:05)
[2018-02-10] MEDS: METOPROLOL TARTRATE 50 MG TABLET PO SCH ×2 (08:20→17:05)
[2018-02-10] MEDS: FEXOFENADINE HCL (60 MG) 60 MG TABLET PO SCH (08:20)
[2018-02-10] MEDS: Z GUARD REMEDY 2 OZ OINT TP SCH (08:22)
[2018-02-10] MEDS: HEPARIN SODIUM, PORCINE 5000 UNITS/1 ML VIAL SQ SCH ×2 (08:33→21:22)
--- NOTE | 2018-02-10 09:00 | NUR ---
RN NOTES PATIENT SEEN AND EVALUATED BY DR. VALDERRAMA SPOKE TO PATIENT REGARDING DISCHARGE TO SNF PATIENT DENIES SNF STATES HER DAUGHTER WILL TAKE HER HOME WITH CAREGIVER. PER DR. VALDERRAMA PATIENT CAN BE DISCHARGED HOME IF REFUSES SNF WITH HOME HEALTH AFTER ALL DMES ARE DELIVERED OXYGEN AND HOSPITAL BED.
[2018-02-10] MEDS: GLUCERNA SHAKE 237 ML CAN PO SCH (09:46)
[2018-02-10 10:26] LABS: ABG BASE EXCESS 10.5 mmol/L; ABG OXYGEN SATURATION 72.7 % (92.0-98.5); ABG PCO2 69.3 mmHg (35.0-45.0); AaDO2 27.7 mmHg; COHb 0.2 % (0.5-1.5); MetHb 0.7 % (0.0-1.5); SITE, ABG Left Radial; VENT MODE, BG room air
--- NOTE | 2018-02-10 11:30 | NUR ---
RN NOTES DR. VALDERRAMA MADE AWARE OF ABG RESULTS STATES PATIENT NEEDS OXYGEN AT HOME AND ORDERS TO DISCHARGE PATIENT TO SNF IF FAMILY REFUSES THEN DC HOME WITH HOME HEALTH WHEN ALL DME IS DELIVERED TO HOME. DAUGHTER STATES AWAITING FOR HOSPITAL BED TO BE DELIVERED AND OXYGEN.
[2018-02-10 12:00] VITALS: BP 135/56
[2018-02-10] MEDS: SOD FERRIC GLUC 125 MG in IV NS 0.9% 100 ML IV SCH (14:41)
[2018-02-10 16:00] VITALS: BP 106/53
--- NOTE | 2018-02-10 18:32 | NUR ---
MS RN NOTES PATIENT IN BED RESTING NO SOB OR ACUTE DISTRESS NOTED ALL DUE MEDICATIONS ADMINISTERED ALL NEEDS MET WILL ENDORSE CARE TO PM SHIFT. NO ACUTE CHANGES TO PATIENT. STILL WAITING FOR HOSPITAL BED TO BE DELIVERED.
[2018-02-10 20:00] VITALS: BP 127/71
[2018-02-10] MEDS: DILTIAZEM HCL CD 120 MG PO SCH (21:09)
[2018-02-10] MEDS: SIMVASTATIN 40 MG TABLET PO SCH (21:09)
[2018-02-10] MEDS: POLYETHYLENE GLYCOL 3350 17 GM POWD.PACK PO SCH (21:09)
--- NOTE | 2018-02-11 00:02 | NUR ---
pt placed on bipap per md orders. no skin tear or redness noted. renata vera aware Addendum: 02/11/18 at 0003 by CLARY MCCOY RT Amended: Links added.
[2018-02-11] MEDS: IPRATROPIUM NEB FS 0.5 MG/2.5 ML AMPUL.NEB NEB SCH ×2 (01:30→07:15)
[2018-02-11 04:00] VITALS: BP 111/49
[2018-02-11] MEDS: SIMETHICONE 80 MG TAB.CHEW PO PRN (06:15)
[2018-02-11 08:00] VITALS: BP 136/62
[2018-02-11 08:30] VITALS: BP_SYST 129
[2018-02-11] MEDS: DOCUSATE SODIUM 250 MG CAPSULE PO SCH (08:30)
[2018-02-11] MEDS: PANTOPRAZOLE 40 MG TABLET.DR PO SCH (08:30)
[2018-02-11] MEDS: ASPIRIN EC 325 MG TABLET.DR PO SCH (08:30)
[2018-02-11] MEDS: METOPROLOL TARTRATE 50 MG TABLET PO SCH (08:30)
[2018-02-11] MEDS: FEXOFENADINE HCL (60 MG) 60 MG TABLET PO SCH (08:31)
[2018-02-11] MEDS: HEPARIN SODIUM, PORCINE 5000 UNITS/1 ML VIAL SQ SCH (08:33)
[2018-02-11] MEDS: GLUCERNA SHAKE 237 ML CAN PO SCH (09:09)
[2018-02-11] MEDS: Z GUARD REMEDY 2 OZ OINT TP SCH (09:09)
== END 2018-02-11 12:25 | disposition home health service (06) | DRG 551 ==
LOC: ER 15:04 → MEDSG2 20:18 → TELE 23:11 → ICU 02-04 06:42 → TELE-TD 02-05 14:07 → TELE1 02-07 08:14 → MEDSG1 02-10 16:30
PROVIDERS: ADMIT Registered Nurse; ATTEND Registered Nurse
PROC: 05H533Z Insertion of Infusion Device into Right Subclavian Vein, Percutaneous Approach (ICD-10-PCS; 2018-02-02)
PROC: B546ZZA Ultrasonography of Right Subclavian Vein, Guidance (ICD-10-PCS; 2018-02-02)
PROC: 5A09457 Assistance with Respiratory Ventilation, 24-96 Consecutive Hours, Continuous Positive Airway Pressure (ICD-10-PCS; principal; 2018-02-04)
DX: M48.02 Spinal stenosis, cervical region (principal); J96.22 Acute and chronic respiratory failure with hypercapnia; J96.21 Acute and chronic respiratory failure with hypoxia; E66.2 Morbid (severe) obesity with alveolar hypoventilation; Z68.41 Body mass index [BMI] 40.0-44.9, adult; M50.01 Cervical disc disorder with myelopathy, high cervical region; J98.11 Atelectasis; I48.92 Unspecified atrial flutter; I25.10 Atherosclerotic heart disease of native coronary artery without angina pectoris; I10 Essential (primary) hypertension; S09.90XA Unspecified injury of head, initial encounter; W01.0XXA Fall on same level from slipping, tripping and stumbling without subsequent striking against object, initial encounter; Y92.481 Parking lot as the place of occurrence of the external cause; M54.12 Radiculopathy, cervical region; I48.91 Unspecified atrial fibrillation; Z79.899 Other long term (current) drug therapy; Z96.653 Presence of artificial knee joint, bilateral; Z91.81 History of falling; Z86.73 Personal history of transient ischemic attack (TIA), and cerebral infarction without residual deficits; M85.80 Other specified disorders of bone density and structure, unspecified site; M40.204 Unspecified kyphosis, thoracic region; M47.9 Spondylosis, unspecified; M81.0 Age-related osteoporosis without current pathological fracture; Z82.49 Family history of ischemic heart disease and other diseases of the circulatory system; Z79.01 Long term (current) use of anticoagulants; I50.9 Heart failure, unspecified; E78.5 Hyperlipidemia, unspecified; I35.0 Nonrheumatic aortic (valve) stenosis; I27.20 Pulmonary hypertension, unspecified; D63.8 Anemia in other chronic diseases classified elsewhere; I87.2 Venous insufficiency (chronic) (peripheral); R32 Unspecified urinary incontinence; I20.9 Angina pectoris, unspecified; I11.9 Hypertensive heart disease without heart failure
CPT/HCPCS: 36415; 36600; 70450-TC; 71045-TC; 72074-TC; 72100-TC; 72125-TC; 72141-TC; 73060-TC; 73090-TC; 73502; 73560-TC; 74018; 80048-TC; 80053-TC; 80061-TC; 80076-TC; 81000-TC; 82652; 82803-TC; 82962-TC; 83540-TC; 83735-TC; 83880; 84100-TC; 84443-TC; 84484-TC; 85025-TC; 85730-TC; 87081-TC; 92611-TC; 93307-TC; 93880-TC; 94760-TC; 94799-TC; 97110-TC; 97530-TC; 97535-TC; A4606; J0282; J1644; J1815; J1885; J2270; J2405; J2916; J7030; J7060; L0172; Z7610